=== PATIENT | male | born 1970 | race Two or more races ===

== ENCOUNTER 2021-07-17 12:20 | Outpatient (REF) | payer OTHER, SELFPAY ==
[2021-07-17 12:52] LABS: COVID-19 Test Negative (Negative); IDNOW Serial# 08D9AD1C
== END 2021-07-17 12:21 | disposition home or self-care (01) ==
LOC: HO.LAB 12:20
PROVIDERS: Visit Provider Internal Medicine
DX: Z20.822 Contact with and (suspected) exposure to COVID-19 (principal)
CPT/HCPCS: 87635; C9803